=== PATIENT | female | born 1950 | race Caucasian/White ===

== ENCOUNTER → 2017-02-14 | Outpatient (CLI) | payer MEDICARE, OTHER | LOC: MC.RAD 11:07 | DX: Z12.31 Encounter for screening mammogram for malignant neoplasm of breast (principal) ==

== ENCOUNTER → 2018-03-17 | Outpatient (CLI) | payer MEDICARE, OTHER | LOC: MC.RAD 07:20 | DX: Z12.31 Encounter for screening mammogram for malignant neoplasm of breast (principal) ==

== ENCOUNTER → 2018-12-30 | Outpatient (CLI) | payer MEDICARE, OTHER ==
[~2018-12-30] MED LIST: ASPIRIN 81M81 MG/TA2 PO; MASON NATURAL600 MG PO; OMEGA-31 SGL PO; TENORMIN 2525 MG/TAB PO; THE MEDICINE S200 M2 PO
== END ==
LOC: COL.RAD 09:22
DX: D47.2 Monoclonal gammopathy (principal); M46.86 Other specified inflammatory spondylopathies, lumbar region; M46.84 Other specified inflammatory spondylopathies, thoracic region; M85.88 Other specified disorders of bone density and structure, other site

== ENCOUNTER → 2019-04-29 | Outpatient (CLI) | payer MEDICARE, OTHER | LOC: MC.RAD 03-25 09:30 | DX: Z12.31 Encounter for screening mammogram for malignant neoplasm of breast (principal) ==

== ENCOUNTER → 2020-05-05 | Outpatient (CLI) | payer MEDICARE, OTHER | LOC: MC.RAD 07:11 | DX: Z12.31 Encounter for screening mammogram for malignant neoplasm of breast (principal) ==

== ENCOUNTER → 2021-05-31 | Outpatient (CLI) | payer MEDICARE, OTHER ==
[~2021-05-31] MED LIST changes: +CELEBREX 200MG200 MG PO; +DECADRON6 MG PO; +ROBITUSSIN100 MG/5 M PO; +TOPROL XL 50MG50 MG PO; +VENTOLIN0.09 MG IH; +ZETIA 10MG TAB10 MG PO
== END ==
LOC: MC.RAD 15:47
DX: Z12.31 Encounter for screening mammogram for malignant neoplasm of breast (principal)

== ENCOUNTER → 2021-12-05 | Outpatient (CLI) | payer MEDICARE, OTHER | LOC: COL.RAD 06:39 | DX: R10.11 Right upper quadrant pain (principal); R10.13 Epigastric pain; M54.89 Other dorsalgia; R63.4 Abnormal weight loss; R14.0 Abdominal distension (gaseous); R19.7 Diarrhea, unspecified | CPT/HCPCS: A9537 ==

== ENCOUNTER → 2023-07-23 | Outpatient (CLI) | payer MEDICARE, OTHER | LOC: MC.RAD 09:55 | DX: Z12.31 Encounter for screening mammogram for malignant neoplasm of breast (principal) ==